=== PATIENT | male | born 2000 | race Caucasian/White ===

== ENCOUNTER 2020-12-05 16:26 | Emergency (ER) | payer OTHER ==
[2020-12-05 16:47] VITALS: BP 124/82; PULSE 79; TEMP 97.8; BMI 21.5
== END 2020-12-05 17:29 | disposition home or self-care (01) ==
LOC: JERFT 16:26
DX: H10.33 Unspecified acute conjunctivitis, bilateral (principal)
CPT/HCPCS: 99283-25

== ENCOUNTER 2021-01-26 16:38 | Emergency (ER) | payer OTHER ==
[2021-01-26 16:52] VITALS: BP 116/69; PULSE 68; TEMP 98; BMI 22.3
[2021-01-26] MEDS ORDERED: IBUPROFEN 400 MG TABLET (FP) PO ONE ×2 (17:31→17:34)
== END 2021-01-26 17:52 | disposition home or self-care (01) ==
LOC: JERFT 16:38 → JER 16:38 → JERFT 17:52
DX: M25.572 Pain in left ankle and joints of left foot (principal)
CPT/HCPCS: 73610-TC-LT-FY; 73630-TC-LT; 99284-25